=== PATIENT | male | born 1990 | race Asian ===

== ENCOUNTER 2018-02-12 10:27 | Emergency (ER) | payer MEDICAID ==
[~2018-02-12] VITALS: Ht 172.7 cm; Wt 90.7 kg
[2018-02-12 10:30] VITALS: Ht 172.7 cm; Wt 90.7 kg
[2018-02-12 11:06] LABS: BASOPHIL % 0.3 % (0-2); RED CELL DISTRIBUTION WIDTH 12.4 % (11.5-14.5)
[2018-02-12 11:07] LABS: PLATELET COUNT 416 x10^3mcL (130-400)
[2018-02-12 11:28] LABS: CALCIUM 8.8 mg/dL (8.5-10.1); CARBON DIOXIDE 27.1 mmol/L (21-32); CHLORIDE SERUM 101 mmol/L (98-107); CREATININE SERUM 0.9 mg/dL (0.7-1.3); GFR1 > 60 mL/min; GLUCOSE SERUM 155 mg/dL (74-106); POTASSIUM SERUM 3.7 mmol/L (3.5-5.1); SODIUM SERUM 135 mmol/L (136-145)
[2018-02-12 11:32] LABS: ALBUMIN 4.3 g/dL (3.4-5.0); ALKALINE PHOSPHATASE 59 U/L (46-116); ALT/SGPT 55 U/L (16-63); HDL CHOLESTEROL 44 mg/dL (40-60); TOTAL PROTEIN, SERUM 7.7 g/dL (6.4-8.2)
[2018-02-12 11:36] LABS: CHOLESTEROL 224 mg/dL (<200); CHOLESTEROL/HDL RATIO 5.1; T3 TOTAL 1.13 ng/mL; TRIGLYCERIDES 701 mg/dL (<150)
[2018-02-12 11:50] LABS: FREE T4 1.04 ng/dL (0.76-1.46); FREE THYROXINE INDEX 3.4 ug/dL (1.4-4.5); T4(THYROXINE) 10.1 ug/dL (4.7-13.3)
[2018-02-12 12:14] LABS: AMPHETAMINE QUAL UR NONE DETECTED (NEG <=1000)
[2018-02-12 12:28] LABS: AST/SGOT 31 U/L (15-37)
[2018-02-12 12:33] VITALS: BP 144/74
== END 2018-02-12 12:33 | disposition home or self-care (01) ==
LOC: ED 10:27
PROVIDERS: Emergency Medicine
DX: R00.2 Palpitations (principal); R06.4 Hyperventilation; E78.00 Pure hypercholesterolemia, unspecified; I10 Essential (primary) hypertension; F17.210 Nicotine dependence, cigarettes, uncomplicated
CPT/HCPCS: 36415; 83880; 84439; 99406